=== PATIENT | female | born 2000 | race Caucasian/White ===

== ENCOUNTER 2022-03-18 16:26 | Inpatient (IN) | payer MEDICAID ==
[~2022-03-18] VITALS: Ht 160 cm; Wt 60.9 kg
[2022-03-19] MEDS ORDERED: ZOLPIDEM TARTRATE 10 MG TABLET PO PRN (01:45)
[2022-03-19] MEDS ORDERED: HALOPERIDOL 5 MG TABLET PO PRN (01:45)
[2022-03-19] MEDS ORDERED: LORazepam 1 MG TABLET PO PRN (01:45)
[2022-03-19 05:09] VITALS: BP 98/60
[2022-03-19 07:57] LABS: BASOPHILS % (AUTO) 0.5 % (0.0-2.0); EOSINOPHILS % (AUTO) 2.2 % (1.0-6.0); HEMATOCRIT 38.8 % (36-46); HEMOGLOBIN 12.9 g/dL (12.0-16.0); LYMPHOCYTES # (AUTO) 2.8 K/uL (1.0-4.8); MEAN CORPUSCULAR HEMOGLOBIN 29.4 pg (26.0-34.0); MEAN CORPUSCULAR HGB CONC 33.1 G/dL (31.0-37.0); MEAN CORPUSCULAR VOLUME 89 fL (80-100); MONOCYTES # (AUTO) 0.8 K/uL (0.1-1.0); MONOCYTES % (AUTO) 9.2 % (2.0-9.0); NEUTROPHILS # (AUTO) 4.9 K/uL (1.8-7.7); NEUTROPHILS % (AUTO) 56.1 % (40.0-70.0); PLATELET COUNT (AUTO) 257 K/uL (150-450); RED BLOOD CELL COUNT(AUTO) 4.37 MIL/uL (4.00-5.20); RED CELL DISTRIBUTION WIDTH 13.9 % (11.5-14.5)
[2022-03-19 08:05] LABS: HEMOGLOBIN A1C 5.3 % (3.8-5.6)
[2022-03-19 08:47] LABS: ALBUMIN 3.2 g/dL (3.4-5.0); ALKALINE PHOSPHATASE 63 U/L (46-116); ANION GAP 4 mmol/L (8-16); ASPARTATE AMINOTRANSFERASE 13 U/L (15-37); BILIRUBIN,TOTAL 0.3 mg/dL (0.1-1.0); CALCIUM, TOTAL 8.9 mg/dL (8.8-10.5); CARBON DIOXIDE 28 mmol/L (22-29); CHLORIDE 105 mmol/L (98-107); CHOLESTEROL 135 mg/dL (131-200); CREATININE 0.85 mg/dL (0.60-1.30); GLUCOSE,RANDOM 94 mg/dL (70-110); HCG,QUANTITATIVE < 1 mIU/mL (0-6); POTASSIUM 3.8 mmol/L (3.5-5.1); SODIUM SERUM 137 mmol/L (136-145); THYROID STIMULATING HORMONE 1.46 uIU/mL (0.36-3.74); TOTAL PROTEIN, SERUM 6.1 g/dL (6.4-8.2); TRIGLYCERIDES 151 mg/dL (15-150); UREA NITROGEN, BLOOD 18 mg/dL (7-18)
[2022-03-19 08:50] LABS: GLOMERULAR FILTR. RATE CALC > 60 mL/min (>60)
[2022-03-19 09:15] LABS: ALANINE AMINOTRANSFERASE 20 U/L (12-78); CHOL/HDL RATIO 2.8 (3.9-5.7); FREE T4 (FREE THYROXINE) 0.98 ng/dL (0.76-1.46); HDL CHOLESTEROL 48 mg/dL (40-60); LDL CHOL (CALC.) 57 mg/dL (0-130)
[2022-03-19] MEDS: ARIPiprazole 10 MG TABLET PO SCH (14:24)
[2022-03-19 20:13] VITALS: BP 122/82
[2022-03-20] MEDS: ARIPiprazole 10 MG TABLET PO SCH (08:19)
[2022-03-20 08:27] VITALS: BP 129/83
[2022-03-20] MEDS ORDERED: DOCUSATE SODIUM 100 MG CAPSULE PO PRN (15:30)
[2022-03-20] MEDS ORDERED: ONDANSETRON HCL 4 MG TABLET PO PRN (15:30)
[2022-03-20] MEDS ORDERED: LOPERAMIDE HCL 2 MG CAPSULE PO PRN (15:30)
[2022-03-20] MEDS ORDERED: ALBUTEROL SULFATE HFA 90 MCG/PUFF 8 GM INHALER IH PRN (15:30)
[2022-03-20] MEDS ORDERED: MAGNESIUM HYDROXIDE SUSPENSION 30 ML UDCUP PO PRN (15:30)
[2022-03-20] MEDS ORDERED: PETROLATUM,WHITE 28 GM JELLY TP PRN (15:30)
[2022-03-20] MEDS ORDERED: BENZOCAINE/MENTHOL LOZENGE PO PRN (15:30)
[2022-03-20] MEDS ORDERED: CloNIDine HCL 0.1 MG TABLET PO PRN (15:30)
[2022-03-20] MEDS ORDERED: OMEPRAZOLE 20 MG CAPSULE PO PRN (15:30)
[2022-03-20] MEDS ORDERED: MAG HYDROX/AL HYDROX/SIMETH ES 30 ML SUSPENSION UDCUP PO PRN (15:30)
[2022-03-20] MEDS ORDERED: IBUPROFEN 600 MG TABLET PO PRN (15:30)
[2022-03-20] MEDS ORDERED: BACITRACIN 28 GM OINTMENT TP PRN (15:30)
[2022-03-20] MEDS ORDERED: ACETAMINOPHEN 325 MG TABLET PO PRN (15:30)
[2022-03-20 20:33] VITALS: BP 110/72
[2022-03-21 08:14] VITALS: BP 129/78
[2022-03-21] MEDS: ARIPiprazole 10 MG TABLET PO SCH (09:51)
[2022-03-21 20:36] VITALS: BP 129/89
[2022-03-22 07:23] LABS: APPEARANCE,URINE CLEAR (CLEAR); BILIRUBIN,URINE NEGATIVE (NEGATIVE); GLUCOSE, URINE (UA) TRACE mg/dL (NEGATIVE); KETONES,URINE NEGATIVE (NEGATIVE); LEUKOCYTE ESTERASE ,URINE TRACE (NEGATIVE); NITRATE,URINE NEGATIVE (NEGATIVE); OCCULT BLOOD,URINE NEGATIVE (NEGATIVE); PROTEIN,URINE NEGATIVE (NEGATIVE); SPECIFIC GRAVITIY, URINE 1.015 (1.003-1.030); UROBILINOGEN,URINE <=1.0 mg/dL (<=1.0)
[2022-03-22 07:48] LABS: AMPHET/METH SCREEN,URINE NEGATIVE (NEGATIVE); BARBITURATE SCREEN, URINE NEGATIVE (NEGATIVE); BENZODIAZEPINES SCREEN,URINE NEGATIVE (NEGATIVE); CANNABINOID SCREEN,URINE NEGATIVE (NEGATIVE); COCAINE SCREEN,URINE NEGATIVE (NEGATIVE); METHADONE SCREEN, URINE NEGATIVE (NEGATIVE); OPIATE SCREEN,URINE NEGATIVE (NEGATIVE)
[2022-03-22 07:50] LABS: PHENCYCLIDINE SCREEN,URINE NEGATIVE (NEGATIVE)
[2022-03-22 08:25] LABS: SQUAMOUS EPITHELIAL CELL,UR Few /LPF (None Seen)
[2022-03-22 08:26] LABS: RBC,URINE None Seen /HPF (0-2)
[2022-03-22 08:27] LABS: CALCIUM OXALATE CRYSTALS,UR Rare /LPF (None Seen)
[2022-03-22 08:28] LABS: BACTERIA,URINE Moderate /HPF (None Seen)
[2022-03-22 08:29] VITALS: BP 124/74
[2022-03-22 08:30] LABS: URIC ACID CRYSTALS,URINE Rare /LPF (None Seen)
[2022-03-22] MEDS: ARIPiprazole 10 MG TABLET PO SCH (08:50)
[2022-03-22] MEDS ORDERED: ARIP10TA38 PO (09:59)
== END 2022-03-22 15:17 | disposition home or self-care (01) | DRG 750 ==
LOC: B3A 03-19 01:10
PROVIDERS: ADMIT Psychiatry & Neurology Psychiatry; ATTEND Psychiatry & Neurology Psychiatry
DX: F20.0 Paranoid schizophrenia (principal); R45.851 Suicidal ideations; F32.9 Major depressive disorder, single episode, unspecified; G47.00 Insomnia, unspecified; K59.00 Constipation, unspecified; Z79.899 Other long term (current) drug therapy
CPT/HCPCS: 80053; 80061; 80307; 81001; 83036; 84436; 84439; 84443; 84702; 85025; 86592; 87086; 87186